=== PATIENT | female | born 1995 | race African-American/Black ===

== ENCOUNTER 2018-09-15 16:17 | Inpatient (IN) | payer OTHER ==
--- NOTE | 2018-09-15 16:21 | EDPHY ---
H & P Time Seen by Provider: 09/15/18 16:17 HPI/ROS: CHIEF COMPLAINT: Suicidal mental health hold HISTORY OF PRESENT ILLNESS: History of schizophrenia has been on Invega but off medications for at least 3-7 months per EMS. Patient was convinced by her family to go to Mental Health walk-in today and was placed on a hold there and brought to us by EMS. Per the mental health hold the patient has been hearing voices telling her to kill herself. REVIEW OF SYSTEMS: Eye: no change in vision ENT: no sore throat Cardiac: No chest pain Pulmonary: Not coughing Abdomen: No vomiting or abdominal pain Musculoskeletal: no back pain Skin: No laceration Neuro: no headache Constitutional: no fever, just feels very tired : no urinary symptoms A comprehensive 10 point review of systems is otherwise negative aside from elements mentioned in the history of present illness. PAST MEDICAL HISTORY: Schizophrenia Social history: Tobacco smoker General Appearance: Alert and conversant, cooperative. Eyes: No scleral icterus. Pupils equal and reactive. ENT, Mouth: Normal mucous membranes. Respiratory: Normal respiratory effort, breath sounds equal, lungs are clear to auscultation. Cardiovascular: Regular rate and rhythm. Gastrointestinal: Abdomen is soft and non tender. Neurological: Alert, face symmetric, normal motor and sensory in extremities. Ambulatory. Skin: No laceration or abrasion. Musculoskeletal: No extremity deformities or tenderness. Psychiatric: Flat affect. Otherwise as in HPI. Emergency Department course/MDM: Arrives on a mental health hold. Plan for urine and screening labs, mental health evaluation. Differential diagnosis considered for depression including functional and major depression, situational depression, medication side effect, drugs and alcohol abuse. The patient had a medical screening evaluation performed. There does not appear to be an acute emergent medical or surgical condition which would preclude psychiatric evaluation at this time. Mental health evaluation is requested at 1721. 2217: The patient will be transferred to [facility] for inpatient psychiatric hospital bed not available at this facility, in stable condition; accepting physician is Dr. Sofia. EMTALA form completed. Constitutional: Initial Vital Signs Temperature (C) 37.1 C 09/15/18 16:31 Heart Rate 104 H 09/15/18 16:31 Respiratory Rate 16 09/15/18 16:31 Blood Pressure 128/85 H 09/15/18 16:31 O2 Sat (%) 96 09/15/18 16:31 O2 Delivery Mode Room Air Allergies/Adverse Reactions: No Known Allergies Allergy (Unverified 09/15/18 16:30) Home Medications: Medication Instructions Recorded Tiffany Ascencio (*) 09/15/18 Medical Decision Making - Data Points Laboratory Results: Laboratory Results 09/15/18 16:32 09/15/18 16:32 09/15/18 09/15/18 09/15/18 18:00 16:32 16:32 WBC RBC Hgb Hct MCV MCH MCHC RDW Plt Count MPV Neut % (Auto) Lymph % (Auto) [place] % (Auto) Eos % (Auto) Baso % (Auto) Nucleat RBC Rel Count Absolute Neuts (auto) Absolute Lymphs (auto) Absolute Monos (auto) Absolute Eos (auto) Absolute Basos (auto) Absolute Nucleated RBC Immature Gran % Immature Gran # Sodium 137 mEq/L mEq/L (135-145) Potassium 4.0 mEq/L mEq/L (3.5-5.2) Chloride 107 mEq/L mEq/L (97-110) Carbon Dioxide 21 mEq/l L mEq/l (22-31) Anion Gap 9 mEq/L mEq/L (6-14) BUN 12 mg/dL mg/dL (7-23) Creatinine 0.9 mg/dL mg/dL (0.6-1.0) Estimated GFR > 60 Glucose 87 mg/dL mg/dL (70-100) Calcium 9.8 mg/dL mg/dL (8.5-10.4) Beta HCG, Qual NEGATIVE Salicylates < 1.0 mg/dL L mg/dL (2.0-20.0) Urine Opiates Screen NEGATIVE (NEGATIVE) Acetaminophen < 10 mcg/mL L mcg/mL (10-30) Urine Barbiturates NEGATIVE (NEGATIVE) Ur Phencyclidine Scrn NEGATIVE (NEGATIVE) Ur Amphetamine Screen NEGATIVE (NEGATIVE) U Benzodiazepines Scrn NEGATIVE (NEGATIVE) Urine Cocaine Screen NEGATIVE (NEGATIVE) U Marijuana (THC) Screen NEGATIVE (NEGATIVE) Ethyl Alcohol < 10 mg/dL mg/dL (0-10) 09/15/18 16:32 WBC 7.25 10^3/uL 10^3/uL (3.80-9.50) RBC 4.63 10^6/uL 10^6/uL (4.18-5.33) Hgb 12.2 g/dL L g/dL (12.6-16.3) Hct 36.8 % L % (38.0-47.0) MCV 79.5 fL L fL (81.5-99.8) MCH 26.3 pg L pg (27.9-34.1) MCHC 33.2 g/dL g/dL (32.4-36.7) RDW 14.0 % % (11.5-15.2) Plt Count 297 10^3/uL 10^3/uL (150-400) MPV 10.8 fL fL (8.7-11.7) Neut % (Auto) 61.3 % % (39.3-74.2) Lymph % (Auto) 32.1 % % (15.0-45.0) [place] % (Auto) 6.1 % % (4.5-13.0) Eos % (Auto) 0.1 % L % (0.6-7.6) Baso % (Auto) 0.1 % L % (0.3-1.7) Nucleat RBC Rel Count 0.0 % % (0.0-0.2) Absolute Neuts (auto) 4.44 10^3/uL 10^3/uL (1.70-6.50) Absolute Lymphs (auto) 2.33 10^3/uL 10^3/uL (1.00-3.00) Absolute Monos (auto) 0.44 10^3/uL 10^3/uL (0.30-0.80) Absolute Eos (auto) 0.01 10^3/uL L 10^3/uL (0.03-0.40) Absolute Basos (auto) 0.01 10^3/uL L 10^3/uL (0.02-0.10) Absolute Nucleated RBC 0.00 10^3/uL 10^3/uL (0-0.01) Immature Gran % 0.3 % % (0.0-1.1) Immature Gran # 0.02 10^3/uL 10^3/uL (0.00-0.10) Sodium Potassium Chloride Carbon Dioxide Anion Gap BUN Creatinine Estimated GFR Glucose Calcium Beta HCG, Qual Salicylates Urine Opiates Screen Acetaminophen Urine Barbiturates Ur Phencyclidine Scrn Ur Amphetamine Screen U Benzodiazepines Scrn Urine Cocaine Screen U Marijuana (THC) Screen Ethyl Alcohol Departure - Departure Disposition: [facility] IP Clinical Impression: Schizophrenia Qualifiers: Schizophrenia type: unspecified Qualified Code(s): F20.9 - Schizophrenia, unspecified Condition: Good Instructions: Schizophrenia (ED) Referrals: [facility],. [Clinic] - As per Instructions
[2018-09-15 16:45] LABS: PLATELET COUNT 297 10^3/uL (150-400)
[2018-09-16] MEDS ORDERED: ACETAMINOPHEN 325 MG TAB PO PRN (01:47)
[2018-09-16] MEDS ORDERED: MAGNESIUM HYDROXIDE 30 ML UDCUP PO PRN (01:47)
[2018-09-16] MEDS ORDERED: OLANZapine DISINTEGR 5 MG TAB PO PRN (01:47)
[2018-09-16] MEDS ORDERED: MAG HYDROX/AL HYDROX/SIMETH 30 ML UDCUP PO PRN (01:47)
--- NOTE | 2018-09-16 11:24 | ASMTBHDC ---
Notes Note: Notes: CC was able to confirm all necesary follow up information: Follow up with: [facility] [address] [place] [id number] [address]: scheduled for a 2 hour Comprehensive Assessment 09/22/18 at 11:30, check in at 11:15 a.m. at [address] [place] [address] with Karlene Morrison.When you send referral, please send Attn: Karlene Morrison to [phone]. Date Signed: 09/16/2018 11:23 AM Electronically Signed By:Albino Verdin
[2018-09-16] MEDS: ARIPiprazole 5 MG TAB PO SCH (12:58)
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
--- NOTE | 2018-09-16 13:55 | BCON ---
[f rep ] BEHAVIORAL HEALTH CONSULTATION INTERNAL MEDICINE CONSULTATION DATE OF CONSULTATION: 09/16/2018 REFERRING PHYSICIAN: Geovani Sofia MD REASON FOR REFERRAL: Medical clearance for inpatient behavioral health stay. HISTORY OF PRESENT ILLNESS: This patient has a history of schizophrenia and had been noncompliant with medications. Her family persuaded her to go to the [facility] where she was placed on an M1 hold, having made suicidal statements, and was subsequently admitted through the emergency department to inpatient [facility]. She currently has no medical complaints. PAST MEDICAL HISTORY: Schizophrenia. PAST SURGICAL HISTORY: She has no history of surgeries. MEDICATIONS: She was not taking any medications. ALLERGIES: There are no known drug allergies. SOCIAL HISTORY: She lives with a friend. She is not working. She is a smoker and not interested in smoking cessation. FAMILY HISTORY: Noncontributory. REVIEW OF SYSTEMS: She reports she has been gaining weight. She denies pain, cough, dyspnea, chest pain, palpitations, nausea, vomiting, constipation, or diarrhea. She denies snoring. She reports that she has heavy menstrual periods. Otherwise, a 10-point review of systems is negative. PHYSICAL EXAM: VITAL SIGNS: Blood pressure is 111/68, heart rate is 93, respiratory rate is 16, oxygen saturation is 96% on room air, temperature is 36.7 degrees centigrade. Her weight is 104.3 kg for a body mass index of 35. GENERAL: This is an obese woman, dressed in street clothes, sitting up on her bed, cooperative and in no acute distress. HEENT: Extraocular movements are intact. Pupils are equal, round, reactive to light. Mucous membranes are moist. Dentition is in good condition. She has a crowded airway, Mallampati class 3. NECK: Supple. HEART: Regular rate and rhythm with no murmurs, rubs , or gallops. LUNGS: Clear to auscultation bilaterally. ABDOMEN: Benign. EXTREMITIES: There is no cyanosis, clubbing, or edema. NEUROLOGIC: She is alert and oriented x3. Cranial nerves 2-12 are grossly intact. There is no focal weakness and sensation is intact to light touch. LABORATORY STUDIES: Drawn yesterday, CBC showed anemia with a hemoglobin of 12.2 and hematocrit of 36.8, MCV was low at 79.5. Serum chemistry revealed normal renal function and electrolytes, but for a slightly low carbon dioxide of 21. Hemoglobin A1c was normal at 5.4. Liver function tests were normal. Lipid panel revealed an elevated cholesterol at 215, an elevated LDL at 165, and a low HDL at 25. Beta hCG was negative for . Toxicology screen in the serum was negative for salicylates, acetaminophen, or ethyl alcohol, and the urine was negative for any substances of abuse. ASSESSMENT AND RECOMMENDATIONS: 1. Anemia, most likely due to menstrual blood loss. I will add on an iron panel to rule out iron deficiency. 2. Dyslipidemia. At her young age, she is not at elevated cardiovascular risk at this point. 3. Obesity. She was encouraged to exercise regularly and to improve her diet. 4. Tobacco dependence syndrome. She was encouraged to quit smoking. I see no medical contraindications to this patient's continued stay on the inpatient behavioral health unit or to any psychiatric medications or procedures. Thank you very much for including me in the care of this patient and please do not hesitate to contact me or the hospitalist service should there be need for further medical evaluation. /[id number]/MODL MTDD
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
[2018-09-16] MEDS: NICOTINE POLACRILEX 2 MG GUM B PRN (18:19)
[2018-09-17] MEDS: ARIPiprazole 5 MG TAB PO SCH (11:16)
[2018-09-17] MEDS: FERROUS SULFATE 325 MG TAB PO SCH (11:17)
[2018-09-17] MEDS: NICOTINE POLACRILEX 2 MG GUM B PRN ×3 (11:18→20:45)
--- NOTE | 2018-09-17 11:42 | SOAPPROG ---
SOAP Progress Note Assessment/Plan: Assessment: Plan: 09/17/18 11:43 Schizophrenia: Remains paranoid. Illogical reasoning re: meds. Will continue to offer Abilify, monitor. Will place on STC due to continued grave disability. Subjective: Pt seen, discussed with staff. Refused Abilify this morning stating, "I already took it yesterday and it didn't help. Why would I take it again?" She then argues that she should be released from the hospital "because you aren't helping me by giving me a medication that doesn't help me." I encouraged her to give it more time. She was guarded, suspicious, oppositional and hostile at times. Continues to request CC call her sister, though states again that "I'm not talking to her because it's her fault I'm here." Continues to isolate, rarely out of her room; not attending groups. Refused breakfast this morning. Objective: Vital Signs Temp Pulse Resp BP Pulse Ox 36.7 C 73 14 117/59 L 96 09/17/18 06:00 09/17/18 06:00 09/17/18 06:00 09/17/18 06:00 09/17/18 06:00 MSE: Guarded, suspicious, oppositional, hostile at times. Affect is restricted , irritable. Mood is "not good." TP is disorganized. TC reveals paranoia, possible RIS. - Time Spent With Patient Time Spent With Patient: 25" ICD10 Worksheet Patient Problems: Problems Problem Status Onset Schizophrenia Acute
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
[2018-09-18] MEDS: FERROUS SULFATE 325 MG TAB PO SCH (09:30)
[2018-09-18] MEDS: ARIPiprazole 5 MG TAB PO SCH (09:30)
--- NOTE | 2018-09-18 15:06 | ASMTCMCOM ---
CM Note CM Note Notes: Pt. reports she "didn't sleep really, had nightmares". Pt. stated it is not common for her to have nightmares. Pt. reports feeling "okay". Pt. stated she is getting enough to eat. Pt. stated she is "not giving right medication". CC discussed the process of a patient getting a CRUZ. Pt. stated she spoke with her sister. Pt. stated she would like to go to a custodial. Pt. stated she gets SSDI, but declined to say how much or what date she receives her check. Pt. denied SI, HI, and AVH. Pt. reports paranoia, but did not want to discuss it with people around. Pt. stated she spoke with [employer] stating they had the wrong social security number. Pt. declined to share her social security number. Pt. presents as alert, nervous, paranoia, suspicious of CC, good eye contact, malodorous and cooperative. Staff report pt. sleeping 9.5 hours and being medication complaint. Staff report pt. being withdrawn. CC to have pt. sign BERNABE for P. CC to look about a custodial placement and will discuss with pt. Date Signed: 09/18/2018 03:05 PM Electronically Signed By:Blanka Cantrell
[2018-09-18] MEDS: NICOTINE POLACRILEX 2 MG GUM B PRN ×2 (15:57→20:10)
--- NOTE | 2018-09-18 17:01 | SOAPPROG ---
SOAP Progress Note Assessment/Plan: Assessment: Per Dr. Davis's note: 09/17/18 11:43 Schizophrenia: Remains paranoid. Illogical reasoning re: meds. Will continue to offer Abilify, monitor. Will place on STC due to continued grave disability. Subjective: Pt seen, discussed with staff. Refused Abilify this morning stating, "I already took it yesterday and it didn't help. Why would I take it again?" She then argues that she should be released from the hospital "because you aren't helping me by giving me a medication that doesn't help me." I encouraged her to give it more time. She was guarded, suspicious, oppositional and hostile at times. Continues to request CC call her sister, though states again that "I'm not talking to her because it's her fault I'm here." Continues to isolate, rarely out of her room; not attending groups. Refused breakfast this morning. Plan: 09/18/18 16:56 1. Patient agreed to take Abilify this AM. However, she still complains that med "isn't helping." 2. Patient requesting to be on CRUZ medication. MD attempted to explain that patient needs to show beneficial response to PO med before taking CRUZ. However, patient demonstrates a complete lack of understanding of why this is the case. 3. Patient's SOC states that she is not guardian or payee for Breonnia. SOC says she thinks Delgado is her own payee. However, patient refuses to discuss with MD or CC if she receives her SSDI. 4. Patient continues to be paranoid and extremely suspicious. 5. STC Subjective: Patient took Abilify 5mg PO this AM, but says it's "not working." However, patient has no clear idea of what "working" would mean for her. She is unable to state what symptoms her medication is supposed to treat. She denies any AH/ VH or CAH. Despite presenting as extremely suspicious and guarded, patient denies paranoid delusions. She does not exhibit any RIS/RES, however, she is very internally preoccupied, but not forthcoming about her thoughts. She denies any SI/HI. Objective: Vital Signs Temp Pulse Resp BP Pulse Ox 36.8 C 77 18 96/50 L 94 03/30/19 06:00 09/18/18 06:00 09/18/18 06:00 09/18/18 06:00 09/18/18 06:00 MSE: Affect: Irritable Mood: Frustrated TP: Disorganized, illogical TC: Denies SI/HI, very paranoid Perception: Denies any AH/VH Insight/Judgment: Impaired - Time Spent With Patient Time Spent With Patient: 15" - Pending Discharge Pending Discharge Within 24 Hours: No Pending Discharge Within 48 Hours: No ICD10 Worksheet Patient Problems: Problems Problem Status Onset Schizophrenia Acute
[2018-09-19] MEDS: NICOTINE POLACRILEX 2 MG GUM B PRN ×2 (10:36→17:40)
[2018-09-19] MEDS: ARIPiprazole 5 MG TAB PO SCH (10:36)
[2018-09-19] MEDS: FERROUS SULFATE 325 MG TAB PO SCH (10:36)
--- NOTE | 2018-09-19 16:49 | SOAPPROG ---
SOAP Progress Note Assessment/Plan: Assessment: Per Dr. Davis's note: 09/17/18 11:43 Schizophrenia: Remains paranoid. Illogical reasoning re: meds. Will continue to offer Abilify, monitor. Will place on STC due to continued grave disability. Subjective: Pt seen, discussed with staff. Refused Abilify this morning stating, "I already took it yesterday and it didn't help. Why would I take it again?" She then argues that she should be released from the hospital "because you aren't helping me by giving me a medication that doesn't help me." I encouraged her to give it more time. She was guarded, suspicious, oppositional and hostile at times. Continues to request CC call her sister, though states again that "I'm not talking to her because it's her fault I'm here." Continues to isolate, rarely out of her room; not attending groups. Refused breakfast this morning. Plan: 09/18/18 16:56 1. Patient agreed to take Abilify this AM. However, she still complains that med "isn't helping." 2. Patient requesting to be on CRUZ medication. MD attempted to explain that patient needs to show beneficial response to PO med before taking CRUZ. However, patient demonstrates a complete lack of understanding of why this is the case. 3. Patient's SOC states that she is not guardian or payee for Breonnia. SOC says she thinks Delgado is her own payee. However, patient refuses to discuss with MD or CC if she receives her SSDI. 4. Patient continues to be paranoid and extremely suspicious. 5. STC 09/19/18 16:44 1. Patient took Abilify again this AM as prescribed. 2. Patient wants to know "when I can be discharged." MD inquired about patient' s plan for treatment when she leaves hospital. She states, "That's not a big concern." 3. Patient continues to be guarded and suspicious. 4. STC Subjective: Patient says she's ready to leave hospital and wants to know "when I'm being discharged." explained she just started on new medication and her treatment team will want to see how well her medication is working before she leaves hospital. MD also inquired about patient's plans for treatment after she discharged. Patient said that wasn't "a big concern" and did not want to tell MD whether she planned to stay in [place] or [place]. MD explained she will need f/u appts, but patient did not agree this was important. Objective: Vital Signs Temp Pulse Resp BP Pulse Ox 36.7 C 77 14 115/58 L 95 09/19/18 06:00 09/19/18 06:00 09/19/18 06:00 09/19/18 06:00 09/19/18 06:00 MSE: Affect: Euthymic Mood: "Good" TP: Goal-directed, illogical TC: Denies any SI/HI, still paranoid and delusional Perception: Denies any AH/VH Insight/ Judgment: Impaired - Time Spent With Patient Time Spent With Patient: 15" - Pending Discharge Pending Discharge Within 24 Hours: No Pending Discharge Within 48 Hours: No ICD10 Worksheet Patient Problems: Problems Problem Status Onset Schizophrenia Acute
[2018-09-20] MEDS: FERROUS SULFATE 325 MG TAB PO SCH (08:56)
[2018-09-20] MEDS: ARIPiprazole 5 MG TAB PO SCH (08:56)
[2018-09-20] MEDS: NICOTINE POLACRILEX 2 MG GUM B PRN ×2 (10:49→20:54)
--- NOTE | 2018-09-20 11:49 | SOAPPROG ---
SOAP Progress Note Assessment/Plan: Assessment: Plan: 09/17/18 11:43 Schizophrenia: Remains paranoid. Illogical reasoning re: meds. Will continue to offer Abilify, monitor. Will place on STC due to continued grave disability. 09/20/18 11:50 Schizophrenia: Some improvement with ABilify. CCM. Go ahead with CRUZ. Subjective: Pt seen, discussed with staff, interviewed in Treatment Team meeting. She was reluctantly compliant with meds over the weekend. Continues to state she doesnt believe it is helping, but then asks for an CRUZ. She agrees to stay through Thursday. No longer talking about her friend who she claimed she was living with. Admits she is homeless. Refuses to go to a [facility], however. States, "I can take care of myself." Agreeable to following up with [facility]. Guarded, though generally cooperative. Affect is restricted, stable. Mood is "not too good." TP is more organized, but derails easily. TC reveals illogical and loose connections, poor reality testing, paranoia. Denies SI/HI/ . Objective: Vital Signs Temp Pulse Resp BP Pulse Ox 36.8 C 81 16 107/58 L 97 09/20/18 06:00 09/20/18 06:00 09/20/18 06:00 09/20/18 06:00 09/20/18 06:00 - Time Spent With Patient Time Spent With Patient: 25" ICD10 Worksheet Patient Problems: Problems Problem Status Onset Schizophrenia Acute
[2018-09-20] MEDS ORDERED: ARIPIPRAZOLE 300 MG IM ONE (11:50)
--- NOTE | 2018-09-20 11:58 | ASMTBHDC ---
Notes Note: Notes: The patient is fixated on discharge planning. She participated in clinical treatment team rounds where she was calm, appropriate, and engaged. The patient emphasized criteria for discharge. The patient expressed interest in an CRUZ; agreed to begin today. She reported nightmares; content included "two headed snakes" and "being alone on an island." The patient reported that her "thoughts have improved, although they are not where I'd like" and she is increasingly "tired." The patient has confirmed follow up with [facility] on 09/28 @ 9:00. Date Signed: 09/20/2018 11:57 AM Electronically Signed By:Cindy Weston
--- NOTE | 2018-09-20 12:39 | ASMTCMCOM ---
CM Note CM Note Notes: CC contacted sister (Star), provided all necessary move information, including address, phone number, visiting hours, etc. Sister thanked this ticket writer for his help. Date Signed: 09/20/2018 12:37 PM Electronically Signed By:Albino Verdin
[2018-09-20] MEDS ORDERED: ARIPIPRAZOLE (ABILIFY MAINTENA) 400 MG VIAL IM ONE (14:30)
[2018-09-21] MEDS: FERROUS SULFATE 325 MG TAB PO SCH ×2 (08:30→20:29)
[2018-09-21] MEDS: ARIPiprazole 5 MG TAB PO SCH (08:30)
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
--- NOTE | 2018-09-21 13:25 | ASMTCMCOM ---
CM Note CM Note Notes: CC spoke with pt's sister about the move to the new unit has been rescheduled to 09/28/18. Date Signed: 09/21/2018 01:19 PM Electronically Signed By:Blanka Cantrell
[2018-09-21] MEDS: ARIPIPRAZOLE (ABILIFY MAINTENA) 400 MG VIAL IM ONE ×2 (14:28→14:42)
[2018-09-21] MEDS: NICOTINE POLACRILEX 2 MG GUM B PRN ×2 (19:34→20:29)
--- NOTE | 2018-09-21 20:05 | SOAPPROG ---
SOAP Progress Note Assessment/Plan: Assessment: Plan: 09/17/18 11:43 Schizophrenia: Remains paranoid. Illogical reasoning re: meds. Will continue to offer Abilify, monitor. Will place on STC due to continued grave disability. 09/20/18 11:50 Schizophrenia: Some improvement with ABilify. CCM. Go ahead with CRUZ. 09/21/18 20:05 Schizophrenia: Remains disorganized, oppositional. Acute paranoia and hallucinations have resolved. Actually consented to CRUZ this afternoon. Will CCM. Likely d/c tomorrow. Subjective: Pt seen, discussed with staff. She remains isolative, guarded, oppositional. I spoke with her at length about her refusal of oral and CRUZ Abilify. She denies refusing either. Enters into an adolescent, circular argument about how she is treated and how no one communicates with her. I was unable to effectively communicate with her and CC took over. After 30+ minutes of 1:1, she states "she didn't tell me anything. She doesn't make any sense." She accuses me of "talking down to me" and "not listening." I repeatedly repeated what she said to me and asked for clarification and she would take offense to this. Objective: Vital Signs Temp Pulse Resp BP Pulse Ox 36.7 C 81 14 103/70 97 09/21/18 06:00 09/21/18 06:00 09/21/18 06:00 09/21/18 06:00 09/21/18 06:00 MSE: ADequately groomed, oppositional, guarded. Affect is restricted, stable. Mood is "bad". TP is disorganized. TC reveals paranoid thoughts. - Time Spent With Patient Time Spent With Patient: 25" ICD10 Worksheet Patient Problems: Problems Problem Status Onset Schizophrenia Acute
[2018-09-21] MEDS: LORazepam 0.5 MG TAB PO PRN (20:29)
[2018-09-22] MEDS: ARIPiprazole 5 MG TAB PO SCH (08:31)
[2018-09-22] MEDS: FERROUS SULFATE 325 MG TAB PO SCH (08:31)
[2018-09-22] MEDS: LORazepam 0.5 MG TAB PO PRN (11:12)
[2018-09-22] MEDS: NICOTINE POLACRILEX 2 MG GUM B PRN ×3 (11:32→20:48)
--- NOTE | 2018-09-22 12:06 | ASMTCMCOM ---
CM Note CM Note Notes: Ct. came in for team review. She reported that she needs help figuring out "where I need to go". Plan was to discharge ct. [facility] her. However she said that she doesn't feels very overwhelmed and is not ready for discharge. Discharge was postponed for the time being. Date Signed: 09/22/2018 12:05 PM Electronically Signed By:Daja Heath
--- NOTE | 2018-09-22 20:32 | SOAPPROG ---
SOAP Progress Note Assessment/Plan: Assessment: Plan: 09/17/18 11:43 Schizophrenia: Remains paranoid. Illogical reasoning re: meds. Will continue to offer Abilify, monitor. Will place on STC due to continued grave disability. 09/20/18 11:50 Schizophrenia: Some improvement with ABilify. CCM. Go ahead with CRUZ. 09/21/18 20:05 Schizophrenia: Remains disorganized, oppositional. Acute paranoia and hallucinations have resolved. Actually consented to CRUZ this afternoon. Will CCM. Likely d/c tomorrow. 09/22/18 20:33 Schizophrenia: Improving, but remains ill. Will CCM, monitor. Subjective: Pt seen, discussed with staff, interviewed alone and then in Treatment Team meeting and then again alone on two additional occasions. She stated initially that she was ready to d/c, then stated later that she "didn't feel right." I discussed with her the difficulty we have had in communication with her and our experience that she seems to not trust us. She states, "I just think you don' like me." I assured her that we are trying to work in her best interests and that she is a very likeable person. She then started crying stating she was note ready to leave the hospital and is afraid. I assured her that we are not "trying to get rid of her" as she feared and would keep her until she felt safe. After numerous discussions yesterday, she eventually decided to take the Maintena CRUZ. C/o feeling "tired and not myself" today which she relates to the medication. Objective: Vital Signs Temp Pulse Resp BP Pulse Ox 36.7 C 98 15 110/72 97 09/22/18 06:00 09/22/18 06:00 09/22/18 06:00 09/22/18 06:00 09/22/18 06:00 MSE: Adequately groomed, cooperative and engaging. Affect is anxious, tearful , stable, approp. Mood is "bad." TP is generally though derails at times. TC reveals continued paranoid thoughts. - Time Spent With Patient Time Spent With Patient: 35" ICD10 Worksheet Patient Problems: Problems Problem Status Onset Schizophrenia Acute
[2018-09-23] MEDS: FERROUS SULFATE 325 MG TAB PO SCH (09:53)
[2018-09-23] MEDS: ARIPiprazole 5 MG TAB PO SCH (09:53)
--- NOTE | 2018-09-23 12:43 | ASMTCMCOM ---
CM Note CM Note Notes: CC checked in with ct. who said that she is not sure how she's doing. Ct. reported that she have ups and downs. She said that she is doing a little better then yesterday. Date Signed: 09/23/2018 12:42 PM Electronically Signed By:Daja Heath
--- NOTE | 2018-09-23 14:34 | SOAPPROG ---
SOAP Progress Note Assessment/Plan: Assessment: Plan: 09/17/18 11:43 Schizophrenia: Remains paranoid. Illogical reasoning re: meds. Will continue to offer Abilify, monitor. Will place on STC due to continued grave disability. 09/20/18 11:50 Schizophrenia: Some improvement with ABilify. CCM. Go ahead with CRUZ. 09/21/18 20:05 Schizophrenia: Remains disorganized, oppositional. Acute paranoia and hallucinations have resolved. Actually consented to CRUZ this afternoon. Will CCM. Likely d/c tomorrow. 09/22/18 20:33 Schizophrenia: Improving, but remains ill. Will CCM, monitor. 09/23/18 14:34 Schizophrenia: Improving. CCM. Subjective: Pt seen, discussed with staff. Reports feeling "better". Much calmer and less irritable. Compliant with meds and attending groups more regularly. Remains somewhat entitled, demanding, especially in interactions with nursing staff. Affect is o/w brighter, more stable. Mood is "better." TP is more linear. TC reveals less prominent paranoia. Denies SI/HI/. Objective: Vital Signs Temp Pulse Resp BP Pulse Ox 36.8 C 86 20 113/61 97 09/23/18 06:00 09/23/18 06:00 09/23/18 06:00 09/23/18 06:00 09/23/18 06:00 MSE: Calm, pleasant and coop. Affect is blunted, stable. Mood is "good." TP is generally linear, able to discuss treatment plan logically. TC reveals no mention of paranoid thoughts or AH's. - Time Spent With Patient Time Spent With Patient: 25" ICD10 Worksheet Patient Problems: Problems Problem Status Onset Schizophrenia Acute
[2018-09-23] MEDS: LORazepam 0.5 MG TAB PO PRN ×2 (17:08→23:31)
[2018-09-23] MEDS: NICOTINE POLACRILEX 2 MG GUM B PRN ×2 (20:13→21:39)
[2018-09-24] MEDS: NICOTINE POLACRILEX 2 MG GUM B PRN (06:40)
[2018-09-24 06:55] VITALS: BP 114/72
[2018-09-24] MEDS: ARIPiprazole 5 MG TAB PO SCH (08:16)
[2018-09-24] MEDS: FERROUS SULFATE 325 MG TAB PO SCH (08:16)
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
== END 2018-09-24 12:25 | disposition home or self-care (01) | DRG 885 ==
LOC: BBEH 09-16 01:22
PROVIDERS: ADMIT Psychiatry & Neurology Psychiatry; ATTEND Psychiatry & Neurology Psychiatry
DX: F20.0 Paranoid schizophrenia (principal); F17.210 Nicotine dependence, cigarettes, uncomplicated; Z91.14 Patient's other noncompliance with medication regimen; E78.5 Hyperlipidemia, unspecified; E66.9 Obesity, unspecified; Z68.41 Body mass index [BMI] 40.0-44.9, adult
CPT/HCPCS: 80305; G0480; J0401